=== PATIENT | male | born 1960 | race Caucasian/White ===

== ENCOUNTER 2020-08-13 08:54 | Outpatient (CLI) | payer BC, SELFPAY ==
[2020-08-13 09:19] LABS: Hematocrit 40.7 % (42.0-52.0); Hemoglobin 13.8 g/dL (14.0-18.0); Mean Corpuscular HGB Conc 33.9 g/dl (32-36); Mean Corpuscular Hemoglobin 31.6 pg (26-34); Mean Corpuscular Volume 93.1 fl (80-100); Mean Platelet Volume 11.1 fl (7.4-10.4); Platelet Count Result 209 k/mm3 (150-375); Red Blood Count 4.37 M/mm3 (4.6-6.20); Red Cell Distribution Width 13.4 % (11.5-14.5); White Blood Count 5.3 K/mm3 (4.5-10.0)
[2020-08-13 09:21] LABS: Add Urine Microscopic? NO; Appearance Urine Clear (Clear); Bilirubin Urine Negative (Negative); Blood Urine Negative (Negative); Color Urine Colorless (Yellow); Glucose Urine UA Negative (Negative); Ketones Urine Negative (Negative); Leukocyte Esterase Ur Negative LEU/UL (NEGATIVE); Nitrate Urine Negative (Negative); Protein Urine Negative (Negative); Specific Grav Ur 1.005 (1.001-1.035); Urobilinogen Urine Negative mg/dL (<2.0)
[2020-08-13 09:23] LABS: Mucus Urine Rare /lpf
[2020-08-13 09:36] LABS: Alanine Aminotransferase 22 U/L (4-50); Albumin Level 4.3 g/dL (3.5-5.1); Alkaline Phosphatase 46 U/L (38-126); Anion Gap 5 mmol/L (8-16); Aspartate Amino Transferase 38 U/L (17-59); Bilirubin,Total 0.9 mg/dL (0.2-1.3); Blood Urea Nitrogen 15 mg/dL (9-20); Calcium 9.5 mg/dL (8.4-10.2); Carbon Dioxide 29 mmol/L (22-30); Chloride 103 mmol/L (98-107); Cholesterol 188 mg/dL (0-200); Estimated Glomerular Filt Rate > 60; Glucose 108 mg/dL (75-110); HDL Direct 55 mg/dL; Potassium 4.5 mmol/L (3.4-5.0); Sodium 137 mmol/L (137-145); Triglycerides 41 mg/dL (<150)
[2020-08-13 09:47] LABS: LDL Cholesterol Direct 110 mg/dL
[2020-08-13 10:02] LABS: Prostate Specific Antigen 0.7 ng/mL (< OR = 4.0)
== END 2020-08-13 08:55 | disposition home or self-care (01) ==
LOC: ANHLAB 08:55
PROVIDERS: PCP Family Medicine; Visit Provider Family Medicine
DX: E78.2 Mixed hyperlipidemia (principal); I10 Essential (primary) hypertension; R36.1 Hematospermia; Z00.00 Encounter for general adult medical examination without abnormal findings
CPT/HCPCS: 36415; 80053; 80061; 81003; 84153; 84443; 85027

== ENCOUNTER 2020-12-23 10:01 | Emergency (ER) | payer BC, SELFPAY ==
[2020-12-23 10:10] VITALS: BP 159/99; PULSE 82; RESP 18; TEMP 37.2; O2SAT 98
--- NOTE | 2020-12-23 10:19 | ED.EAR ---
HPI - Ear Problem General Chief complaint: Ear Stated complaint: ear Source: patient Mode of arrival: ambulatory Limitations: no limitations History of Present Illness HPI Narrative: 60-year-old male presents to [facility] with complaints of irritation to left ear since this morning. Patient reports that he is unsure if he has a part of a Q-tip lodged in the left ear. Patient reports that the irritation started after he used a Q-tip this morning cleaning his ears. Patient denies ear discharge, fever, body aches, chills, nausea, vomiting, diarrhea. MD Complaint: other (Irritation to left ear -- ?? FB ) Location: left ear Duration: constant Severity: mild Relieving factors: nothing Exacerbating factors: nothing Discharge from ear: Reports no Treatment prior to arrival: none Related Data Home Medications Medication Instructions Recorded Confirmed aspirin 81 mg tablet,delayed 81 mg PO DAILY 01/30/20 12/23/20 release multivitamin 1 tablet PO DAILY 01/30/20 12/23/20 Allergies Allergy/AdvReac Type Severity Reaction Status Date / Time No Known Allergies Allergy Verified 08/13/20 08:16 Review of Systems Constitutional: Constitutional: Denies chills, Denies fever(s) and Denies weakness ENT: Denies dysphagia, Denies dizziness, Denies epistaxis, Denies nasal congestion and Denies sore throat Comments: left ear irriation Cardiovascular: Cardiovascular: Denies chest pain, Denies rapid heart rate, Denies radiating jaw, neck or arm pain and Denies slow heart rate Respiratory: Respiratory: Denies chest congestion, Denies cough, Denies dyspnea and Denies wheezing Gastrointestinal: Gastrointestinal: Denies abdominal pain, Denies diarrhea, Denies nausea and Denies vomiting Integumentary/Breasts: Skin/Breast: Denies rash PMF Past Medical History Medical History (Updated 12/23/20 @ 10:26 by Nicolasa Banda APRN) HLD (hyperlipidemia) HTN (hypertension), benign Surgical History Surgical History History of appendectomy Family History Family History Mother Family history of malignant neoplasm of ovary Social History Social History Social History: Smoking status: Never smoker Second hand tobacco smoke exposure: No Alcohol intake: current Drinks per week: 20 Substance use: never Substance use type: does not use Gender identity (if verbalized by the patient): Male Comments At time of signature, I agree with nursing past medical, surgical, social and family history. There is no relevant family history pertinent to the presenting complaint. Exam Const: General: healthy appearing, no acute distress and alert Orientation/consciousness: patient oriented x3 HENMT: Head: normal to inspection Ears: external ears normal and TM's normal bilaterally General nose exam: Normal nares present Face and sinus: normal facial exam Mouth: Yes lip normal and Yes moist mucous membranes Throat: uvula midline Other: There is no FB noted to bilateral ears. Left ear canal is mild erythematous -- appears mildly abraded. There is no bleeding, purulent drainage noted. Neck: Neck: normal visual inspection Resp: Effort & Inspection: normal respiratory effort Auscultation: clear to auscultation bilaterally Cardio: Rate: regular rate, not bradycardic and not tachycardic Rhythm: regular rhythm Skin: General skin exam: normal color, no jaundice and no pallor Rashes: no rashes Neuro: General: patient oriented x3, moves all extremities, no meningeal signs and no focal motor deficits Psych: Mental Status: mental status grossly normal Affect: normal affect Attitude: cooperative Course Vital Signs Vital signs: Vital Signs Temperature 37.2 C 12/23/20 10:10 Pulse Rate 82 12/23/20 10:10 Respiratory Rate 18 12/23/20 10:10 Blood Press
[2020-12-23 10:33] VITALS: BP 142/92
== END 2020-12-23 10:31 | disposition home or self-care (01) ==
PROVIDERS: Emergency Provider Nurse Practitioner Family; PCP Family Medicine
DX: S00.412A Abrasion of left ear, initial encounter (principal); X58.XXXA Exposure to other specified factors, initial encounter; E78.5 Hyperlipidemia, unspecified; I10 Essential (primary) hypertension
CPT/HCPCS: 99213; G0463

== ENCOUNTER 2021-02-16 08:37 | Outpatient (CLI) | payer BC, SELFPAY ==
[2021-02-16 09:02] LABS: Potassium 4.1 mmol/L (3.4-5.0)
[2021-02-16 09:06] LABS: Alanine Aminotransferase 22 U/L (4-50); Albumin Level 4.5 g/dL (3.5-5.1); Alkaline Phosphatase 52 U/L (38-126); Anion Gap 5 mmol/L (8-16); Aspartate Amino Transferase 34 U/L (17-59); Bilirubin,Total 0.7 mg/dL (0.2-1.3); Blood Urea Nitrogen 15 mg/dL (9-20); Calcium 9.3 mg/dL (8.4-10.2); Carbon Dioxide 32 mmol/L (22-30); Chloride 98 mmol/L (98-107); Estimated Glomerular Filt Rate > 60; Glucose 109 mg/dL (75-110); Sodium 135 mmol/L (137-145)
== END 2021-02-16 08:38 | disposition home or self-care (01) ==
PROVIDERS: PCP Family Medicine; Visit Provider Family Medicine
DX: I10 Essential (primary) hypertension (principal)
CPT/HCPCS: 36415; 80053

== ENCOUNTER 2021-08-10 09:49 | Outpatient (CLI) | payer BC, SELFPAY ==
[2021-08-10 10:22] LABS: Hemoglobin 14.1 g/dL (14.0-18.0); Mean Corpuscular HGB Conc 34.4 g/dl (32-36); Mean Corpuscular Hemoglobin 31.8 pg (26-34); Mean Corpuscular Volume 92.6 fl (80-100); Mean Platelet Volume 10.9 fl (7.4-10.4); Platelet Count Result 235 k/mm3 (150-375); Red Blood Count 4.43 M/mm3 (4.6-6.20); Red Cell Distribution Width 13.2 % (11.5-14.5)
[2021-08-10 10:32] LABS: Alanine Aminotransferase 19 U/L (4-50); Albumin Level 4.5 g/dL (3.5-5.1); Alkaline Phosphatase 53 U/L (38-126); Anion Gap 6 mmol/L (8-16); Aspartate Amino Transferase 31 U/L (17-59); Bilirubin,Total 0.5 mg/dL (0.2-1.3); Blood Urea Nitrogen 13 mg/dL (9-20); Calcium 9.2 mg/dL (8.4-10.2); Carbon Dioxide 31 mmol/L (22-30); Chloride 102 mmol/L (98-107); Cholesterol 174 mg/dL (0-200); Estimated Glomerular Filt Rate > 60; Glucose 108 mg/dL (65-110); HDL Direct 71 mg/dL; Potassium 4.1 mmol/L (3.4-5.0); Sodium 139 mmol/L (137-145); Triglycerides 43 mg/dL (<150)
[2021-08-10 10:43] LABS: Add Urine Microscopic? NO; Appearance Urine Clear (Clear); Bilirubin Urine Negative (Negative); Blood Urine Negative (Negative); Color Urine Colorless (Yellow); Glucose Urine UA Negative (Negative); Ketones Urine Negative (Negative); Leukocyte Esterase Ur Negative LEU/UL (NEGATIVE); Nitrate Urine Negative (Negative); Protein Urine Negative (Negative); Urobilinogen Urine Negative mg/dL (<2.0)
[2021-08-10 10:43] LABS: LDL Cholesterol Direct 83 mg/dL
[2021-08-10 10:50] LABS: Specific Grav Ur 1.003 (1.001-1.035)
== END 2021-08-10 09:50 | disposition home or self-care (01) ==
PROVIDERS: PCP Family Medicine; Visit Provider Family Medicine
DX: E78.5 Hyperlipidemia, unspecified (principal); I10 Essential (primary) hypertension; Z00.00 Encounter for general adult medical examination without abnormal findings; R35.1 Nocturia
CPT/HCPCS: 36415; 80053; 80061; 81003; 84153; 84443; 85027

== ENCOUNTER 2022-10-25 08:43 | Outpatient (CLI) | payer BC, SELFPAY ==
[2022-10-25 09:10] LABS: Basophils Absolute Auto 0.1 K/mm3 (0.0-0.1); Basophils Percent Auto 1.8 % (0.2-1.2); Eosinophils Absolute Auto 0.2 K/mm3 (0-0.3); Eosinophils Percent Auto 2.7 % (0-4.4); Hemoglobin 13.7 g/dL (14.0-18.0); Immature Granulocyte Absolute 0.02 K/mm3 (0.00-0.031); Immature Granulocyte Percent A 0.4 % (0-0.5); Lymphocytes Absolute Auto 1.87 K/mm3 (0.9-3.2); Lymphocytes Percent Auto 33.5 % (18.3-44.2); Mean Corpuscular HGB Conc 33.4 g/dl (32-36); Mean Corpuscular Hemoglobin 30.9 pg (26-34); Mean Corpuscular Volume 92.3 fl (80-100); Mean Platelet Volume 10.1 fl (7.4-10.4); Monocytes Absolute Auto 0.5 K/mm3 (0.1-0.6); Neutrophils Absolute Auto 2.9 K/mm3 (1.3-6.7); Neutrophils Percent Auto 52.6 % (45.5-73.1); Platelet Count Result 229 k/mm3 (150-375); Red Blood Count 4.44 M/mm3 (4.6-6.20); Red Cell Distribution Width 13.3 % (11.5-14.5); White Blood Count 5.6 K/mm3 (4.5-10.0)
[2022-10-25 09:11] LABS: Appearance Urine Clear (Clear); Bilirubin Urine Negative (Negative); Blood Urine Negative (Negative); Color Urine Yellow (Yellow); Glucose Urine UA Negative (Negative); Ketones Urine Negative (Negative); Leukocyte Esterase Ur Negative LEU/UL (NEGATIVE); Nitrate Urine Negative (Negative); Protein Urine Negative (Negative); Specific Grav Ur 1.015 (1.001-1.035); Urobilinogen Urine 0.2 mg/dL (<2.0)
[2022-10-25 09:14] LABS: Add Urine Microscopic? NO
[2022-10-25 09:47] LABS: Alanine Aminotransferase 42 U/L (6-50); Albumin Level 4.7 g/dL (3.5-5.1); Alkaline Phosphatase 49 U/L (38-126); Anion Gap 7 mmol/L (8-16); Aspartate Amino Transferase 42 U/L (17-59); Blood Urea Nitrogen 11 mg/dL (9-20); Carbon Dioxide 29 mmol/L (22-30); Chloride 103 mmol/L (98-107); Cholesterol 207 mg/dL (0-200); Estimated Glomerular Filt Rate > 60; Glucose 99 mg/dL (65-110); HDL Direct 76 mg/dL; Potassium 4.2 mmol/L (3.4-5.0); Sodium 139 mmol/L (137-145); Triglycerides 59 mg/dL (<150)
[2022-10-25 09:58] LABS: LDL Cholesterol Direct 106 mg/dL
[2022-10-25 10:13] LABS: Prostate Specific Antigen 0.9 ng/mL (< OR = 4.0)
== END 2022-10-25 08:44 | disposition home or self-care (01) ==
PROVIDERS: PCP Family Medicine; Visit Provider Physician Assistant
DX: R35.1 Nocturia (principal); E78.5 Hyperlipidemia, unspecified; I10 Essential (primary) hypertension; R73.01 Impaired fasting glucose; Z00.00 Encounter for general adult medical examination without abnormal findings
CPT/HCPCS: 36415; 80053; 80061; 81003; 83036; 84153; 84443; 85025

== ENCOUNTER 2022-10-28 08:20 | Outpatient (CLI) | payer BC, SELFPAY ==
[2022-10-28 09:11] LABS: Influenza A QL RT-PCR Negative (Negative); Influenza B QL RT-PCR Negative (Negative); SARS-CoV-2 RNA PCR Negative
== END 2022-10-28 08:21 | disposition home or self-care (01) ==
LOC: ANHLAB 08:21
PROVIDERS: PCP Family Medicine; Visit Provider Physician Assistant
DX: J02.9 Acute pharyngitis, unspecified (principal); Z20.822 Contact with and (suspected) exposure to COVID-19
CPT/HCPCS: 87636

== ENCOUNTER 2023-05-02 09:11 | Outpatient (CLI) | payer BC, SELFPAY ==
[2023-05-02 10:28] LABS: Alanine Aminotransferase 35 U/L (6-50); Albumin Level 4.7 g/dL (3.5-5.1); Alkaline Phosphatase 49 U/L (38-126); Anion Gap 4 mmol/L (8-16); Aspartate Amino Transferase 40 U/L (17-59); Bilirubin,Total 0.9 mg/dL (0.2-1.3); Blood Urea Nitrogen 13 mg/dL (9-20); Calcium 9.1 mg/dL (8.4-10.2); Carbon Dioxide 32 mmol/L (22-30); Chloride 102 mmol/L (98-107); Estimated Glomerular Filt Rate > 60; Glucose 102 mg/dL (65-110); Potassium 4.5 mmol/L (3.4-5.0); Sodium 138 mmol/L (137-145)
== END 2023-05-02 09:12 | disposition home or self-care (01) ==
PROVIDERS: PCP Family Medicine; Visit Provider Family Medicine
DX: I10 Essential (primary) hypertension (principal)
CPT/HCPCS: 36415; 80053

== ENCOUNTER 2023-05-02 11:33 | Outpatient (CLI) | payer BC, SELFPAY ==
--- NOTE | ~2023-05-02 | XR_ITS ---
EXAMINATION: XR lumbar spine 2-3V DATE: 05/02/2023 12:09 INDICATION: Spinal stenosis TECHNIQUE: Anteroposterior and lateral views of the lumbar spine, and cone-down lateral view of the l umbosacral junction were obtained. COMPARISON: None. FINDINGS: Bone alignment is normal. There is no fracture. The vertebral body heights are maintained. There is mild loss of intervertebral disc space height at L3-4. Small degenerative osteophytes projec t from the anterior endplates of multiple vertebral bodies. IMPRESSION: 1. Mild lumbar spondylosis without acute findings. Reviewed, dictated and finalized at location A.
== END 2023-05-02 11:34 ==
PROVIDERS: PCP Family Medicine; Visit Provider Family Medicine
DX: M48.061 Spinal stenosis, lumbar region without neurogenic claudication (principal); M47.896 Other spondylosis, lumbar region
CPT/HCPCS: 72100

== ENCOUNTER 2023-07-27 09:32 | Outpatient (CLI) | payer BC, SELFPAY ==
--- NOTE | 2023-07-27 11:00 | NEURO_ITS ---
Impression: # Complains of numbness and weakness of left hand. 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 # No Carpal Tunnel Syndrome. # Needle/EMG exam reveals neurogenic changes in left 1st DI and Abd Dig Min. Nerve Conduction Studies Anti Sensory Summary Table Stim Site NR Peak (ms) P-T Amp (?V) Site1 Site2 Delta-P (ms) Dist (cm) Ata (m/s) Left Median Anti Sensory (2-3nd Digit) Wrist 3.5 32.3 Wrist 2-3nd Digit 3.5 14.0 40 Wrist 3.5 40.4 Wrist 2-3nd Digit 3.5 14.0 40 Left Radial Anti Sensory (Base 1st Digit) Wrist 2.4 7.2 Wrist Base 1st Digit 2.4 0.0 Left Ulnar Anti Sensory (5th Digit) Wrist 3.3 7.9 Wrist 5th Digit 3.3 14.0 42 Motor Summary Table Stim Site NR Onset (ms) O-P Amp (mV) Site1 Site2 Delta-0 (ms) Dist (cm) Ata (m/s) Left Median Motor (Abd Poll Brev) Wrist 3.5 5.5 Elbow Wrist 5.6 31.0 55 Elbow 9.1 5.0 Left Ulnar Motor (Abd Dig Minimi) Wrist 4.1 0.6 A Elbow Wrist 7.4 29.0 39 A Elbow 11.5 0.3 B Elbow Wrist 4.3 18.0 42 B Elbow 8.4 0.1 F Wave Studies NR F-Lat (ms) L-R F-Lat (ms) Left Median (Mrkrs) (Abd Poll Brev) 28.26 Left Ulnar (Mrkrs) (Abd Dig Min) 33.27 EMG Side Muscle Nerve Root Ins Act Fibs Amp Dur Recrt Comment Left 1stDorInt Ulnar C8-T1 Nml Nml Decr >12ms Reduced Left Ext Indicis Radial (Post Int) C7-8 Nml Nml Nml Nml Nml Left Ext Digitorum Radial (Post Int) C7-8 Nml Nml Nml Nml Nml Left BrachioRad Radial C5-6 Nml Nml Nml Nml Nml Left PronatorTeres Median C6-7 Nml Nml Nml Nml Nml Left Abd Poll Brev Median C8-T1 Nml Nml Nml Nml Nml Left ABD Dig Min Ulnar C8-T1 Nml Nml Decr >12ms Reduced Left Biceps Musculocut C5-6 Nml Nml Nml Nml Nml Left Triceps Radial C6-7-8 Nml Nml Nml Nml Nml MTDD
== END 2023-07-27 09:33 | disposition home or self-care (01) ==
LOC: ANHNEURO 09:33
PROVIDERS: PCP Family Medicine; Visit Provider Physician Assistant
DX: R20.0 Anesthesia of skin (principal); G56.22 Lesion of ulnar nerve, left upper limb
CPT/HCPCS: 95886; 95909

== ENCOUNTER 2023-10-19 01:18 | Day surgery (SDC) | payer BC, SELFPAY ==
[2023-10-07 14:17] VITALS: BMI 25.8
--- NOTE | 2023-10-07 14:22 | PC.NURSE ---
Report to the Outpatient Waiting Room, entrance under the green pavilion located off [facility], at time 0730 on date 10/19/23. Planned Procedure Time: 0930. Time changes happen often and if your time is changed the preop area will call you the afternoon before. - You and your visitor will be asked to self-screen and do not enter if you have any COVID symptoms. - A mask is optional within the hospital at this time. Patients may have clear liquids (water, carbonated beverages, clear teas, apple juice) until 3 hours prior to surgery with a maximum of 20 ounces. - No food from midnight until time of surgery Take the following medications with a SIP of water the morning of surgery: NONE DO NOT STOP ANY OF YOUR OTHER PRESCRIPTION MEDICATIONS PRIOR TO SURGERY ?EXCEPT THE FOLLOWING Medications to discontinue per physician: VITAMINS Date to take last dose: 10/15/23 Please no make-up, nail guamanian, hairspray, perfume, deodorant, or body powder the day of surgery. No jewelry (including any body piercings) or valuables the day of surgery, leave them at home. Please take a shower or bath the night before, or the morning of, surgery with an antibacterial soap. Wear comfortable, loose fitting clothing. - Jewelry must be removed prior to entering the operating room. Rings and piercings that are not removed may be cut off. - The hospital will not accept responsibility for valuables. - Please leave all valuables, including medications, at home the day of surgery. If you are going home after surgery, a licensed oil transport driver must drive you home. - NO public transportation without another adult if you receive anesthesia. - We recommend that an adult stay with you for 24 hours following discharge. - We also recommend that you do not drive, make important decision, drink alcoholic beverages, or take any drugs that were not prescribed by your health care provider for at least 24 hours after your discharge time. Follow any additional instructions given to you from your surgeon. If you or anyone in your household have experienced Covid symptoms in the past week, please notify your surgeon or the nurse liaison at the phone number below for possible testing. Telephone instructions given to PT - ESTELLA MATUTE and asked if any additional questions and then verbalized understanding. Patient advised to call surgeon office or pre surgery nurse liaison [phone] if any additional questions.
--- NOTE | 2023-10-19 07:31 | WPDHPUPDATE1 ---
History and Physical Update Update Date/Time: 10/19/23 07:31 History and Physical has been reviewed, including an updated exam of the patient. There are NO changes in the patient's condition. Risks, benefits, and alternatives have been discussed and questions answered. Patient agrees to proceed with procedure.
[2023-10-19 08:35] VITALS: BP 156/84; PULSE 83; RESP 18; TEMP 36.3; O2SAT 100
[2023-10-19] MEDS: LACTATED RINGERS 1,000 ML 30 ML IV CONT (09:06)
--- NOTE | 2023-10-19 10:59 | P.PNAN_ITS ---
Anes - Initial Pre Proc Eval Procedure: Operation Date: 10/19/23 10:30 Proposed Procedures p Left Ulnar Neuroplasty at the Elbow - Bk Gabriel MD Date/Time: 10/19/23 10:59 Surgeon: Bk Gabriel MD Pre Op Diagnosis: Lt Cubital Tunnel Syndrome Patient Data Age: 63 Gender: M Height: 1.73 m Weight: 72.5 kg Last Vital Signs Temp 97.4 F L 10/19/23 08:35 Pulse 83 10/19/23 08:35 Resp 18 10/19/23 08:35 BP 156/84 H 10/19/23 08:35 Pulse Ox 100 10/19/23 08:35 O2 Del Method Room Air 10/19/23 08:35 Allergies Allergy/AdvReac Type Severity Reaction Status Date / Time No Known Allergies Allergy Verified 10/19/23 09:30 Home Medications Medication Instructions Recorded Confirmed Type aspirin 81 mg tablet,delayed 81 mg PO DAILY 01/30/20 10/19/23 History release multivitamin 1 tablet PO DAILY 01/30/20 10/19/23 History amlodipine 5 mg tablet 5 mg PO DAILY #90 tabs 02/16/23 10/19/23 Rx lisinopril 40 mg tablet 40 mg PO DAILY #90 tabs 05/19/23 10/19/23 Rx Patient hx anesthesia problems: none Family hx anesthesia problems: none Results Review: All pre-operative results and documents have been reviewed as part of the pre- operative evaluation. [facility] Past Medical History Medical History HLD (hyperlipidemia) HTN (hypertension), benign Surgical History Surgical History History of appendectomy Family History Family History Mother Family history of malignant neoplasm of ovary Social History Social History Social History: Smoking status: Never smoker Second hand tobacco smoke exposure: No Alcohol intake: current Drinks per week: 20 Alcohol use details: 6-12/DAY (BEER) Substance use: never Substance use type: does not use Living arrangements: with family Occupation/Education: retired Gender identity (if verbalized by the patient): Male Sexual Orientation (if Verbalized by the Patient): Straight or Heterosexual Spiritual care concerns: No Anes - Eval Final PreProcedure Day of Procedure 10/19/23 10:59 Patient weight: normal Heart: regular rate and rhythm Lungs: clear to auscultation Airway: Mallampati scale class II Neurological: alert and oriented Last oral intake: >/= 8 hours ASA classification: II Emergent: no Anesthetic plan: proceed Anesthesia type and monitoring: general GIVS and standard monitoring Results Review: All pre-operative results and documents have been reviewed as part of the pre- operative evaluation. Informed Consent: The patient's anesthetic plan and its attendant risks and benefits were discussed with the patient/family/POA. Questions were solicited and answers provided to the satisfaction of the patient/family/POA.
[2023-10-19] MEDS: LIDO 1%/EPINEPHRINE 1:100,000 20 ML VIAL 6 ML INFILTRATE (11:30)
[2023-10-19 12:06] VITALS: BP 113/54; PULSE 80; RESP 18; O2SAT 98
--- NOTE | 2023-10-19 12:20 | W.PM.PROC2 ---
Procedure Note - Detailed Date of Procedure 10/19/23 Pre-op Diagnosis Lt Cubital Tunnel Syndrome Post-op Diagnosis Same Procedure Performed Left ulnar neuroplasty at the elbow Surgeon Bk Gabriel MD Anesthesia MAC Description of Procedure The skin over the cubital tunnel was marked on the patient with his consent in the holding area. He was taken to the operating room where he was placed supine on the operating table. He was given IV sedation with an LMA. The extremity was prepped and draped in usual fashion. The site was marked for the incision and locally infiltrated with 1% lidocaine with epinephrine. The extremity was exsanguinated and the tourniquet inflated to 250 mmHg. The elbow was flexed and supported on folded towels. The incision was made as marked. Blunt dissection through the subcutaneous tissue revealed the very superficial ulnar nerve. Bleeding points were electrocoagulated along the way. The nerve was fully unroofed through Young's ligament. Distally and proximally there was virtually no additional points of compression. Although the ulna lay directly under the nerve just distal to the olecranon and that seemed to place the nerve under perhaps unusual pressure. The tourniquet was released and bleeding points again controlled. The wound was closed with intradermal 3-0 Monocryl suture cross mehta cummings. The skin was then closed with a running intradermal 3-0 Monocryl. The usual bandages were applied is discharged from the operating room stable condition. Total tourniquet time 9 minutes. Discharge the prescription for hydrocodone 5/325 6. Inset of the paper prescription. He has instructions in care follow-up Estimated Blood Loss 3 Tourniquet Time 8 Drains No Packing No Pathology None sent Complications No immediate complications Condition Stable Disposition Same day
[2023-10-19 12:35] VITALS: BP 119/61; PULSE 70; RESP 18; O2SAT 99
== END 2023-10-19 12:35 | disposition home or self-care (01) ==
PROVIDERS: PCP Family Medicine; Visit Provider Plastic Surgery
PROC: (CPT 64718; principal; 2023-10-19 10:30)
DX: G56.22 Lesion of ulnar nerve, left upper limb (principal); E78.5 Hyperlipidemia, unspecified; I10 Essential (primary) hypertension; Z79.82 Long term (current) use of aspirin; Z80.41 Family history of malignant neoplasm of ovary
CPT/HCPCS: 64718; A9270; J2250; J2704; J3010; J7120

== ENCOUNTER 2023-11-02 08:39 | Outpatient (CLI) | payer BC, SELFPAY ==
[2023-11-02 09:06] LABS: Hematocrit 44.7 % (42.0-52.0); Hemoglobin 14.9 g/dL (14.0-18.0); Mean Corpuscular HGB Conc 33.3 g/dl (32-36); Mean Corpuscular Volume 93.1 fl (80-100); Mean Platelet Volume 10.3 fl (7.4-10.4); Platelet Count Result 248 k/mm3 (150-375); Red Cell Distribution Width 13.5 % (11.5-14.5); White Blood Count 4.9 K/mm3 (4.5-10.0)
[2023-11-02 09:12] LABS: Appearance Urine Clear (Clear); Bilirubin Urine Negative (Negative); Blood Urine Negative (Negative); Color Urine Yellow (Yellow); Glucose Urine UA Negative (Negative); Ketones Urine Negative (Negative); Leukocyte Esterase Ur Negative LEU/UL (NEGATIVE); Nitrate Urine Negative (Negative); Protein Urine Negative (Negative); Specific Grav Ur 1.015 (1.001-1.035); Urobilinogen Urine 0.2 mg/dL (<2.0)
[2023-11-02 09:15] LABS: Add Urine Microscopic? NO
[2023-11-02 09:24] LABS: Alanine Aminotransferase 41 U/L (6-50); Albumin Level 4.7 g/dL (3.5-5.1); Alkaline Phosphatase 52 U/L (38-126); Anion Gap 7 mmol/L (8-16); Aspartate Amino Transferase 40 U/L (17-59); Bilirubin,Total 0.9 mg/dL (0.2-1.3); Blood Urea Nitrogen 13 mg/dL (9-20); Calcium 9.5 mg/dL (8.4-10.2); Carbon Dioxide 30 mmol/L (22-30); Chloride 103 mmol/L (98-107); Cholesterol 231 mg/dL (0-200); Estimated Glomerular Filt Rate > 60; Glucose 110 mg/dL (65-110); HDL Direct 79 mg/dL; Potassium 4.6 mmol/L (3.4-5.0); Sodium 140 mmol/L (137-145); Triglycerides 49 mg/dL (<150)
[2023-11-02 09:35] LABS: LDL Cholesterol Direct 130 mg/dL
== END 2023-11-02 08:40 | disposition home or self-care (01) ==
LOC: ANHLAB 08:40
PROVIDERS: PCP Family Medicine; Visit Provider Family Medicine
DX: Z00.00 Encounter for general adult medical examination without abnormal findings (principal); I10 Essential (primary) hypertension; E78.5 Hyperlipidemia, unspecified; R73.01 Impaired fasting glucose; R35.1 Nocturia
CPT/HCPCS: 36415; 80053; 80061; 81003; 84153; 84443; 85027

== ENCOUNTER 2023-12-16 09:15 | Outpatient (RCR) | payer BC, SELFPAY ==
--- NOTE | 2023-11-16 10:25 | OTOPEVAL1 ---
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 He is right handed. Reported Pain Level Pain Score 5: Self Report Assessment OT Clinical Summary Patient referred to OT with left hand intrinsic muscle wasting s/p left ulnar neuroplasty at the elbow. He presents with weak intrinsics which limits functional fine motor coordination and pinching. All of these muscles are at least firing 2-/5. He is requiring verbal, tactile, and visual cues to isolate these muscles, but appears to have a good understanding of the exercises issued today. Continued follow up recommended to progress therapeutic exercises and activities to promote optimal functional strength of the left hand. Plan of Care Interventions Therapeutic Exercise,Manual Therapy,Therapeutic Activities,Check Out for Orthotic/Pr OT Services Indicated Yes Treatment Frequency and 1-2x/week for 4 weeks Duration These treatments will address the objective and functional deficits as defined above. The patient will be advanced safely and appropriately in order for the patient to progress towards his/her prior level of function. Additional exercises will be introduced and as well as a comprehensive home exercise program upon discharge, if needed, ?to ensure carryover of functional gains achieved in the clinic. This treatment plan has been reviewed and agreement upon by the patient.
--- NOTE | 2023-11-16 10:26 | OPREHPOC ---
Outpatient Therapy Plan of Care This is a Multidisciplinary Plan of Care that may contain components documented by all disciplines (PT, OT, and ST.) OT Problem 1 OT Problem #1 Knowledge Deficit OT Goal 1 Goal 1. Patient to be independent with instructed materials. Target Visit 8 OT Problem 2 OT Problem #2 Impaired Strength OT Goal 1 Goal 1. Increase the strength of the left hand lumbricals to 3+/5. 2. Increase the strength of the left hand intrinsics to 3+/5. 3. Increase lateral pinch strength to 2 lbs. Target Visit 8
--- NOTE | 2023-12-16 09:53 | OTOPEVAL1 ---
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 Has been using his hand and reports his hand has been fatigued. He reports some progress with fine motor coordination, doing nuts and bolts, pinching, etc., but does report residual weakness. Continues to have to modify tasks such as holding a fork when he's cutting with the right hand, having to use a gross plane runner on the fork. States he still cannot adduct his fingers/thumb. Reports no pain, just tightness . Reported Pain Level Pain Score 0: Self Report Assessment OT Clinical Summary Patient referred to OT with left hand intrinsic muscle wasting s/p left ulnar neuroplasty at the elbow. OT reassessment completed today after 6 treatment sessions focused on improving gross left hand strength. Patient demonstrates good progress with improved wrist strength, however the intrinsic muscles of the hands continue to be weak , firing 2-/5 muscle strength. He demonstrates excellent understanding of the HEP to isolate these muscles and the adductor of the thumb. Discussed that nerve return will continue to take time and he verbalizes his understanding. Discharging today with patient independent with HEP. Plan of Care OT Services Indicated No These treatments will address the objective and functional deficits as defined above. The patient will be advanced safely and appropriately in order for the patient to progress towards his/her prior level of function. Additional exercises will be introduced and as well as a comprehensive home exercise program upon discharge, if needed, ?to ensure carryover of functional gains achieved in the clinic. This treatment plan has been reviewed and agreement upon by the patient.
== END 2023-12-16 10:07 | disposition home or self-care (01) ==
LOC: ANHOT 09:15
PROVIDERS: PCP Family Medicine; Visit Provider Plastic Surgery
DX: M62.542 Muscle wasting and atrophy, not elsewhere classified, left hand (principal); G56.22 Lesion of ulnar nerve, left upper limb
CPT/HCPCS: 97110; 97165; 97530

== ENCOUNTER 2024-05-11 09:21 | Outpatient (CLI) | payer BC, SELFPAY ==
--- NOTE | ~2024-05-11 | XR_ITS ---
[id number] Ordering provider: Marissa Valdivia PA-C History: . M79.671 - Pain in right foot DISTAL FOOT, NO KNOWN INJ . Comparison: None. FINDINGS: BONES: No acute fracture or dislocation. JOINT SPACES: Osteoarthritic changes of the first metatarsophalangeal joint.. No tarsal coalition. SOFT TISSUES: Normal. IMPRESSION: No acute osseous abnormality of the right foot. Reviewed, dictated and finalized at location A.
[2024-05-11 09:54] LABS: Hemoglobin A1C 5.1 % (<5.7)
[2024-05-11 09:57] LABS: Alanine Aminotransferase 70 U/L (6-50); Albumin Level 4.8 g/dL (3.5-5.1); Alkaline Phosphatase 54 U/L (38-126); Anion Gap 7 mmol/L (4-12); Aspartate Amino Transferase 59 U/L (17-59); Blood Urea Nitrogen 11 mg/dL (9-20); Calcium 9.5 mg/dL (8.4-10.2); Carbon Dioxide 28 mmol/L (22-30); Chloride 103 mmol/L (98-107); Cholesterol 230 mg/dL (0-200); Estimated Glomerular Filt Rate > 60; Glucose 116 mg/dL (65-110); HDL Direct 68 mg/dL; Sodium 138 mmol/L (137-145); Triglycerides 72 mg/dL (<150); Uric Acid 5.6 mg/dL (3.5-8.5)
[2024-05-11 10:08] LABS: LDL Cholesterol Direct 145 mg/dL
== END 2024-05-11 09:22 | disposition home or self-care (01) ==
LOC: ANHLAB 09:23
PROVIDERS: PCP Family Medicine; Visit Provider Physician Assistant Medical
DX: E78.5 Hyperlipidemia, unspecified (principal); I10 Essential (primary) hypertension; R73.01 Impaired fasting glucose; M79.671 Pain in right foot
CPT/HCPCS: 36415; 73630; 80053; 80061; 83036; 84550

== ENCOUNTER 2024-12-30 08:50 | Emergency (ER) | payer BC, SELFPAY ==
--- NOTE | ~2024-12-30 | XR_ITS ---
EXAMINATION: XR chest 2V DATE: 12/30/2024 09:20 INDICATION: Left anterior rib pain TECHNIQUE: PA and lateral views of the chest were obtained. COMPARISON: Chest radiograph dated 09/12/2012 FINDINGS: The lungs are clear with no focal airspace opacities, pulmonary edema, pleural effusion or pneumothor ax. The cardiomediastinal silhouette is normal. Mild thoracic spondylosis. IMPRESSION: 1. No acute cardiopulmonary disease. Reviewed, dictated and finalized at location A. [employer] DIVISION CHAIR
--- NOTE | ~2024-12-30 | CT_ITS ---
EXAMINATION: CT brain wo con DATE: 12/30/2024 09:24 INDICATION: Head injury TECHNIQUE: Computed tomography (CT) of the head was performed without intravenous contrast. Sagittal and coronal reconstructions were performed. The mA was adjusted according to patient size. Iterative reconstruction technique was employed. The dose-length product was 605.33 mGy-cm. COMPARISON: None FINDINGS: No acute intracranial hemorrhage, acute infarction or abnormal extra axial fluid collection. There is mild scattered white matter hypoattenuation consistent with chronic small vessel ischemic disease. S ymmetric prominence of the sulci consistent with mild age-appropriate diffuse cerebral volume loss. V entricles are normal and symmetric. No mass/mass effect. Mild mucosal thickening in the bilateral eth moid and right maxillary sinuses. There is a larger mucous retention cyst in the right maxillary sinu s. The orbits and mastoid air cells are normal. IMPRESSION: 1. Normal aging brain. No acute intracranial process. Reviewed, dictated and finalized at location A. 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
[2024-12-30 08:51] VITALS: BP 168/84; PULSE 91; RESP 18; TEMP 36.8; O2SAT 99
--- OUTSIDE RECORDS SUMMARY | 2024-12-30 08:52 | XMS_ITS | Referral Summary ---
Author Organization [facility] Address [address] [place] [address] Care Team Providers Care Client Technical Specialist Name Role Phone Unavailable Primary Care Provider Unavailabl e Source Comments [facility],non-owned Affiliates and Associated Physician Practices is amultiple site organization consisting of ambulatory clinics and hospital sitesin [place], [place], [place] and [place]. This disclosure is being madepursuant to the Care Everywhere program and may not contain all information available regarding this patient. Last updated 18.[facility] Immunizations Name Administration Dates Next Due INFLUENZA VACCINE, QUADR. (F LUZONE; FLULAVAL; FLUARIX; AFLURIA QUADRIVALENT; 6MO+), 0.5 ML (IIV4) 10/06/2020 Social History Tobacco Use Types Packs/Day Years Used Date Smoking Tobacco: Never Assessed Sex and Gender Information Value Date Recorded Sex Assigned at Not on file Gender Identity Not on file Sexual Orientation Not on file Plan of [place] [address]
--- OUTSIDE RECORDS SUMMARY | 2024-12-30 08:52 | XMS_ITS | Clinical Summary ---
Author Organization [facility] Address [address] [place] [address] Care Team Providers Care Television Agent Name Role Phone Unavailable Primary Care Provider Unavailabl e Source Comments [facility],non-owned Affiliates and Associated Physician Practices is amultiple site organization consisting of ambulatory clinics and hospital sitesin [place], [place], [place]. This disclosure is being madepursuant to the Care Everywhere program and may not contain all information available regarding this patient. Last updated 18.[facility] [employer] Immunizations Name Administration Dates Next Due INFLUENZA VACCINE, QUADR. (F LUZONE; FLULAVAL; FLUARIX; AFLURIA QUADRIVALENT; 6MO+), 0.5 ML (IIV4) 10/06/2020 Social History Tobacco Use Types Packs/Day Years Used Date Smoking Tobacco: Never Assessed Sex and Gender Information Value Date Recorded Sex Assigned at Not on file Gender Identity Not on file Sexual Orientation Not on file Plan of Treatment Health Maintenance Due Date Last Done Comments COLOGUARD (AGES 45-75) - COL ON CA SCREENING 1961 COLON MONITORING 1961 COLONOSCOPY - COLON CA SCREENING 1961 CT COLONOGRAPHY - COLON CA SCREENING 1961 Colorectal Cancer Screening 1961 FIT - COLON CA SCREENING 1961 FLEX SIG - COLON CA SCREENING 1961 LIPID TESTING 1961 HIV SCREENING 1976 HEPATITIS C SCREENING 01/13/1979 DTAP/TDAP/TD VACCINES (1 - Tdap) 1980 PNEUMOCOCCAL VACCINE 50+ (1 of 1 - PCV) 2011 ZOSTER VACCINE (1 of 2) 2011 COVID-19 VACCINE ( - 2023-2 5 season) 2024 INFLUENZA VACCINE (#1) 2024 10/06/2020 DEPRESSION SCREENING 11/21/2024 Respiratory Syncytial Virus (RSV) Vaccine Pt: or over 60 yrs (1 - 1-dose 75+ series) 2036 HEPATITIS B VACCINE Aged Out No longe r eligible based on patient's age to complete this topic HIB VACCINE Aged Out No longer eligi ble based on patient's age to complete this topic HPV VACCINE Aged Out No longer eligi ble based on patient's age to complete this topic MENINGOCOCCAL (Group B) VACCINE Aged Out No longer eligible based on patient's age to complete this topic MENINGOCOCCAL VACCINE Aged Out No gera ancelmo eligible based on patient's age to complete this topic PNEUMOCOCCAL VACCINE Aged Out No long er eligible based on patient's age to complete this topic
--- OUTSIDE RECORDS SUMMARY | 2024-12-30 08:52 | XMS_ITS | Patient Health Summary ---
Author Organization [facility] Address [address] [place] [address] Care Team Providers Care Trolley Car Overhauler Name Role Phone Unavailable Primary Care Provider Unavailabl e Note from [facility] [facility],non-owned Affiliates and Associated Physician Practices is amultiple site organization consisting of ambulatory clinics and hospital sitesin [place], [place], [place] and [place]. This disclosure is being madepursuant to the Care Everywhere program and may not contain all information available regarding this patient. Last updated 18.[facility] Immunizations * INFLUENZA VACCINE, QUADR. (FLUZONE; FLULAVAL; FLUARIX; AFLURIA QUADRIVALENT; 6MO+), 0.5 ML (IIV4)(Given 10/06/2020) Social History Tobacco Use Types Packs/Day Years Used Date Smoking Tobacco: Never Assessed Sex and Gender Information Value Date Recorded Sex Assigned at Not on file Gender Identity Not on file Sexual Orientation Not on file
--- NOTE | 2024-12-30 09:10 | ED.GENADULT ---
HPI - General Adult General Chief complaint: Fall Stated complaint: side pain from a fall Time Seen by Provider: 12/30/24 09:02 History of Present Illness HPI narrative: 64-year-old male presenting to the emergency department for evaluation for having a mechanical fall resulting in a head injury and left lower rib pain. Patient states that he has a house full boxes because he is in the process of packing and moving. Patient reports he was walking in the dark and tripped over a box causing him to fall and struck his ribs in the back of the recliner. Patient then fell and struck his head on a box. Patient denies any loss of consciousness. Patient states he does have some pain with deep inspiration but denies any shortness of breath. Patient denies any other pain or injury. Related Data Home Medications ?Medication ?Instructions ?Recorded ?Confirmed ?Last Taken ?Type aspirin 81 mg tablet,delayed 81 mg PO DAILY 01/30/20 12/20/24 Unknown History release multivitamin 1 tablet PO DAILY 01/30/20 12/20/24 Unknown History Allergies Allergy/AdvReac Type Severity Reaction Status Date / Time No Known Allergies Allergy Verified 12/30/24 08:50 Review of Systems Review of Systems: All systems reviewed & are unremarkable except as noted in HPI and below PMFSH Past Medical History Medical History HLD (hyperlipidemia) HTN (hypertension), benign Surgical History Surgical History Hx of decompression of ulnar nerve left History of appendectomy Family History Family History Mother Family history of malignant neoplasm of ovary Social History Social History Social History: Smoking status: Never smoker Second hand tobacco smoke exposure: No Alcohol intake: current Drinks per week: 20 Alcohol use details: 6-12/DAY (BEER) Substance use: never Substance use type: does not use Living arrangements: with family Occupation/Education: retired Gender identity (if verbalized by the patient): Male Sexual Orientation (if Verbalized by the Patient): Straight or Heterosexual Spiritual care concerns: No Exam Narrative: APPEARANCE: Well appearing, no pain, no distress, well-nourished. HEAD: normocephalic, left scalp contusion. EYES: PERRLA/EOMI, conjunctivae clear. NOSE: Normal no drainage EARS:TMS clear with good light reflex. THROAT: Pharynx clear, no exudate. NECK: Supple. No adenopathy, no masses. RESPIRATORY: Airway patent, respirations nonlabored. Clear to auscultation bilaterally, no rales, rhonchi, wheezing. CARDIOVASCULAR: Regular rate and rhythm without murmurs rubs or gallops. ABDOMINAL: Soft, nontender, nondistended, normal bowel sounds. tenderness to left anterior rib but no tenderness to abdomen MUSCULOSKELETAL: left lower anterior rib pain NEURO: Alert. Cranial nerves II through XII intact. grossly intact SKIN: Warm, dry. Normal Color Course Vital Signs Vital signs: Vital Signs Temperature 98.3 F 12/30/24 08:51 Pulse Rate 91 12/30/24 08:51 Respiratory Rate 18 12/30/24 08:51 Blood Pressure 168/84 H 12/30/24 08:51 Pulse Oximetry 99 12/30/24 08:51 Oxygen Delivery Room Air 12/30/24 08:51 Temperature 97.9 F 12/30/24 10:30 Pulse Rate 76 12/30/24 10:30 Respiratory Rate 16 12/30/24 10:30 Blood Pressure 132/76 12/30/24 10:30 Pulse Oximetry 98 12/30/24 10:30 Oxygen Delivery Room Air 12/30/24 08:51 Medical Decision Making MDM Narrative Medical decision making narrative: 64-year-old male present to the emergency department for evaluation for left-sided rib pain. X-rays were negative for acute fracture, or cardiopulmonary abnormality. CT head was negative for acute intracranial abnormality. Suspect a left-sided rib contusion. Patient will be provided incentive spirometer. Patient declined any additional medications for pain control. Patient was educated on reasons to return to the emergency Differential Diagnosis Differential Diagnosis: Rib fracture, rib contusion, pneumothorax, subdural hematoma, subarachnoid hemorrhage Vital Signs Vital Signs: Vital Signs Temperature 98.3 F 12/30/24 08:51 Pulse Rate 91 12/30/24 08:51 Respiratory Rate 18 12/30/24 08:51 Blood Pressure 168/84 H 12/30/24 08:51 Pulse Oximetry 99 12/30/24 08:51 Oxygen Delivery Room Air 12/30/24 08:51 Temperature 97.9 F 12/30/24 10:30 Pulse Rate 76 12/30/24 10:30 Respiratory Rate 16 12/30/24 10:30 Blood Pressure 132/76 12/30/24 10:30 Pulse Oximetry 98 12/30/24 10:30 Oxygen Delivery Room Air 12/30/24 08:51 Imaging Data Radiologist's impression: Impressions Chest X-Ray 12/30/24 09:27 IMPRESSION: 1. No acute cardiopulmonary disease. Head CT 12/30/24 09:28 IMPRESSION: 1. Normal aging brain. No acute intracranial process. Discharge Plan Discharge Clinical Impression: Contusion of rib, Head injury Patient Disposition: Home, Self-Care Condition: Stable Instructions: Antibiotic Form, How to Use an Incentive Spirometer (ED), Head Injury (ED), Head Injury (DC), Rib Contusion (ED) Additional Instructions: Tylenol and ibuprofen for pain control. Incentive spirometer as directed. If you have any worsening symptoms including worsening shortness of breath or fever then please call or return to the emergency department. Patient Language: Georgian Prescriptions: No Action aspirin 81 mg tablet,delayed release (DR/EC) 81 mg PO DAILY Patient Comments: PT TAKES IN AFTERNOON multivitamin Tablet 1 tablet PO DAILY Patient Comments: PT TAKES IN AFTERNOON hydrochlorothiazide 12.5 mg tablet 12.5 mg PO DAILY Qty: 90 1RF amlodipine 10 mg tablet 10 mg PO DAILY Qty: 90 2RF Patient Comments: PT TAKES IN AFTERNOON lisinopril 40 mg tablet 40 mg PO DAILY Qty: 90 1RF Patient Comments: PT TAKES IN AFTERNOON rosuvastatin 10 mg tablet 10 mg PO DAILY Qty: 90 1RF Follow-up/Referrals: Armando Romero MD [Primary Care Provider] -
--- OUTSIDE RECORDS SUMMARY | 2024-12-30 09:13 | XMS_ITS | Clinical Summary ---
Author Organization [facility] Address [address] [place] [address] Care Team Providers Care Cleaning Technician Name Role Phone Unavailable Primary Care Provider Unavailabl e Source Comments [facility],non-owned Affiliates and Associated Physician Practices is amultiple site organization consisting of ambulatory clinics and hospital sitesin [place], [place], [place] and [place]. This disclosure is being madepursuant to the Care Everywhere program and may not contain all information available regarding this patient. Last updated 18.[facility] Immunizations Name Administration Dates Next Due INFLUENZA [...]
--- OUTSIDE RECORDS SUMMARY | 2024-12-30 09:13 | XMS_ITS | Patient Health Summary ---
Author Organization [facility] Address [address] [place] [address] Care Team Providers Care Car Record Clerk Name Role Phone Unavailable Primary Care Provider Unavailabl e Note from [facility],non-owned Affiliates and Associated Physician Practices is amultiple site organization consisting of ambulatory clinics and hospital sitesin [place], [place], [place] and [place]. This disclosure is being madepursuant to the Care Everywhere program and may not contain all information available regarding this patient. Last updated 18.[facility] Immunizations * INFLUENZA VACCINE, QUADR. (FLUZONE; FLULAVAL; FLUARIX; AFLURIA QUADRIVALENT; 6MO+), 0.5 ML (IIV4)(Given 10/06/2020) Social History Tobacco Use Types Packs/Day Years Used Date Smoking Tobacco: Never Assessed Sex and Gender Information Value Date Recorded Sex Assigned at Not on file Gender Identity Not on file Sexual Orientation Not on file
--- OUTSIDE RECORDS SUMMARY | 2024-12-30 09:13 | XMS_ITS | Referral Summary ---
Author Organization [facility] Address [address] [place] [address] Care Team Providers Care Histology Technologist Name Role Phone Unavailable Primary Care Provider Unavailabl e Source Comments [facility],non-owned Affiliates and Associated Physician Practices is amultiple site organization consisting of ambulatory clinics and hospital sitesin [place], [place], [place] and [place]. This disclosure is being madepursuant to the Care Everywhere program and may not contain all information available regarding this patient. Last updated 18.[facility] Immunizations Name Administration Dates Next Due INFLUENZA VACCINE, QUADR. (F LUZONE; FLULAVAL; FLUARIX; AFLURIA QUADRIVALENT; 6MO+), 0.5 ML (IIV4) 10/06/2020 Social History Tobacco Use Types Packs/Day Years Used Date Smoking Tobacco: Never Assessed Sex and Gender Information Value Date Recorded Sex Assigned at Not on file Gender Identity Not on file Sexual Orientation Not on file Plan [place] [address]
[2024-12-30 09:30] VITALS: BP 136/80; PULSE 76; RESP 16; TEMP 36.6; O2SAT 100
[2024-12-30 10:30] VITALS: BP 132/76; PULSE 76; RESP 16; TEMP 36.6; O2SAT 98
== END 2024-12-30 10:35 | disposition home or self-care (01) ==
PROVIDERS: Emergency Provider Emergency Medicine; PCP Family Medicine
DX: S09.90XA Unspecified injury of head, initial encounter (principal); S20.212A Contusion of left front wall of thorax, initial encounter; I10 Essential (primary) hypertension; E78.5 Hyperlipidemia, unspecified; Z79.82 Long term (current) use of aspirin; Z79.899 Other long term (current) drug therapy; W18.09XA Striking against other object with subsequent fall, initial encounter
CPT/HCPCS: 70450; 71046; 99284